=== PATIENT | male | born 1955 | race African-American/Black ===

== ENCOUNTER 2025-04-09 15:02 | Emergency (ER) | payer SELFPAY ==
[~2025-04-09] VITALS: Ht 180.3 cm; Wt 65.0 kg
[2025-04-09 15:18] VITALS: O2SAT 97
[2025-04-09] MEDS: IBUPROFEN 600MG TABLET PO ONE (15:53)
[2025-04-09] MEDS ORDERED: IBUP-2029 MT (16:19)
[2025-04-09 16:29] VITALS: BP 136/82; PULSE 86; RESP 22; TEMP 36.6; O2SAT 98
== END 2025-04-09 17:13 | disposition home or self-care (01) ==
LOC: ER 15:02
DX: T69.022A Immersion foot, left foot, initial encounter (principal); T69.021A Immersion foot, right foot, initial encounter; I10 Essential (primary) hypertension; F17.211 Nicotine dependence, cigarettes, in remission; Z59.00 Homelessness unspecified; Y92.89 Other specified places as the place of occurrence of the external cause
CPT/HCPCS: 73620; 99284; 99285; 99406

== ENCOUNTER 2025-04-11 17:56 | Emergency (ER) | payer MEDICAID ==
[~2025-04-11] VITALS: Ht 167.6 cm; Wt 68.0 kg
[~2025-04-11 17:56] MED LIST: IBUP-2029 MT
[2025-04-11 17:58] VITALS: O2SAT 96
[2025-04-11] MEDS: ACETAMINOPHEN 500MG TABLET PO ONE (20:26)
[2025-04-11] MEDS: LIDOCAINE 5% PATCH TOP SCH (20:29)
[2025-04-11 22:39] VITALS: BP 121/70; PULSE 73; RESP 20; TEMP 36.8; O2SAT 100
== END 2025-04-11 22:46 | disposition home or self-care (01) ==
LOC: ER 17:56
DX: M54.50 Low back pain, unspecified (principal); M25.561 Pain in right knee; M25.562 Pain in left knee; I10 Essential (primary) hypertension; Z59.00 Homelessness unspecified
CPT/HCPCS: 72100; 73562; 99284